=== PATIENT | male | born 1995 | race African-American/Black ===

== ENCOUNTER 2016-11-03 04:53 | Emergency (ER) | payer OTHER ==
[2016-11-03 05:12] VITALS: BMI 25.8
[2016-11-03] MEDS ORDERED: SODIUM CHLORIDE 1,000 ML IV STA (07:31)
[2016-11-03] MEDS ORDERED: ACETAMINOPHEN 650 MG/20.3 ML ORAL SOLUTION (CUPS) PO ONE (07:32)
--- NOTE | 2016-11-03 07:39 | PDOC ---
History of Present Illness - General Chief Complaint: Headache Stated Complaint: HEADACHE,WEAKNESS Time Seen by Provider: 11/03/16 07:19 History Source: Patient Exam Limitations: No Limitations - History of Present Illness Initial Comments: 11/03/16 07:33 20-year-old male presents to the emergency room complaints of fever since yesterday now accompanied with body aches and left frontal headache. Patient denies sore throat, cough, dizziness, nausea, abdominal pain, diarrhea, rash, or visual changes. Patient denies medical history, recent travel, recent illness , and the mother states is fully vaccinated. Timing/Duration: 24 hours Severity: moderate Associated Symptoms: reports: fever/chills, headaches, weakness Past History - Past Medical History Allergies/Adverse Reactions: Allergies Allergy/AdvReac Type Severity Reaction Status Date / Time No Known Allergies Allergy Verified 11/03/16 05:06 Home Medications: Ambulatory Orders NK [No Known Home Medication] 09/01/15 - Psycho/Social/Smoking Cessation Hx Suicidal Ideation: No Smoking History: Former smoker Have you smoked in the past 12 months: No Number of Cigarettes Smoked Daily: 0 Information on smoking cessation initiated: No Hx Alcohol Use: No Drug/Substance Use Hx: No Patient Lives Alone: No Lives with/in: parents Review of Systems - Review of Systems Able to Perform ROS?: Yes Constitutional: Yes: Chills, Fever, Weakness HEENTM: No: Symptoms Reported Respiratory: No: Symptoms reported Cardiac (ROS): No: Symptoms Reported ABD/GI: No: Symptoms Reported : No: Symptoms Reported Musculoskeletal: No: Symptoms Reported Integumentary: No: Symptoms Reported Neurological: Yes: Headache, Weakness Endocrine: No: Symptoms Reported Hematologic/Lymphatic: No: Symptoms Reported *Physical Exam - Vital Signs Last Vital Signs Temp Pulse Resp BP Pulse Ox 100.6 F H 86 14 126/58 100 11/03/16 05:06 11/03/16 05:06 11/03/16 05:06 11/03/16 05:06 11/03/16 05:06 - Physical Exam General Appearance: Yes: Nourished, Appropriately Dressed. No: Apparent Distress HEENT: positive: EOMI, NETTIE, TMs Normal, Pharynx Normal. negative: Pale Conjunctivae Neck: positive: Supple Respiratory/Chest: positive: Lungs Clear, Normal Breath Sounds. negative: Respiratory Distress, Accessory Muscle Use Cardiovascular: positive: Regular Rhythm, Regular Rate. negative: Murmur Gastrointestinal/Abdominal: positive: Soft. negative: Tenderness Integumentary: positive: Normal Color, Warm, Moist Neurologic: positive: Motor Strength 5/5 (ambulatory) ED Treatment Course - LABORATORY CBC & Chemistry Diagram: 11/03/16 07:44 11/03/16 07:44 Medical Decision Making - Medical Decision Making 11/03/16 07:30 Patient complaining of fever since yesterday now with headache, body aches and generalized weakness. Patient has a temperature of 100.6 upon arrival. Patient on exam had no acute findings. Will send labs including influenza swab. Patient also ordered for liquid Tylenol and IV fluids. 11/03/16 09:02 11/03/16 09:02 Laboratory Tests 11/03/16 11/03/16 07:44 07:44 WBC 8.4 Hgb 16.4 Hct 48.7 MCV 98.5 H Neutrophils % 86.8 H Lymphocytes % 6.9 L Sodium 140 Potassium 4.4 Chloride 102 Carbon Dioxide 25 Anion Gap 13 BUN 11 Creatinine 1.1 Random Glucose 94 Calcium 9.0 Total Bilirubin 0.8 AST 33 ALT 47 Alkaline Phosphatase 116 Total Protein 7.7 Albumin 4.4 Influenza swab negative. Patient will be revitalized and discharged home with supportive care. 11/03/16 09:04 Selected Entries 11/03/16 08:32 Temperature 98.1 F Pulse Rate [ 89 Apical] Respiratory 17 Rate Blood Pressure 115/68 [Right Arm] O2 Sat by Pulse 98 Oximetry (%) *DC/Admit/Observation/Transfer Diagnosis at time of Disposition: Viral illness - Discharge Dispostion Disposition: HOME Condition at time of disposition: Improved - Referrals Referrals: Luis Antonio Feliciano MD [Primary Care Provider] - - Patient Instructions Printed Discharge Instructions: DI for Viral Syndrome Additional Instructions: At this point there was no acute findings on lab work and I recommend that you take Motrin 600 mg for discomfort and fever. Follow-up with your primary care physician. otherwise return to ED if symptoms worsen
[2016-11-03] MEDS ORDERED: ACETAMINOPHEN 650 MG/20.3 ML ORAL SOLUTION (CUPS) ONE (07:40)
[2016-11-03 08:34] LABS: BASOPHIL 0.2 % (0-2.0); EOSINOPHIL 0.1 % (0-4.5); MCH 33.2 pg (25.7-33.7); MCHC 33.7 g/dl (32.0-35.9); MEAN CELL VOLUME 98.5 fl (80-96); MEAN PLT VOLUME 9.1 fl (7.5-11.1); NEUTROPHILS 86.8 % (42.8-82.8); RDW 13.4 % (11.9-15.9); WHITE BLOOD COUNT 8.4 K/mm3 (4.0-10.0)
[2016-11-03 08:35] LABS: ALBUMIN 4.4 g/dl (3.4-5.0); ANION GAP 13 (8-16); BILIRUBIN,TOTAL 0.8 mg/dL (0.2-1.0); CO2 25 mmol/L (21-32); COCKROFT - GAULT 116.83; CREATININE 1.1 mg/dL (0.7-1.3); GLUCOSE,RANDOM 94 mg/dL (74-106); SGOT/AST 33 U/L (15-37); SGPT/ALT 47 U/L (12-78); TOT PROT 7.7 g/dl (6.4-8.2)
[2016-11-03 08:36] LABS: ALK PHOS 116 U/L (45-117)
[2016-11-03 09:16] VITALS: BP 117/57; PULSE 74; TEMP 98.6
[2016-11-03 10:33] LABS: PLATELET COUNT 189 K/MM3 (134-434)
== END 2016-11-03 09:16 | disposition home or self-care (01) ==
LOC: JER 04:53
DX: B34.9 Viral infection, unspecified (principal)
CPT/HCPCS: 36415; 80053; 85025; 87804; 99283-25

== ENCOUNTER 2017-09-03 14:33 | Emergency (ER) | payer OTHER ==
[2017-09-03 14:51] VITALS: BP 140/79; PULSE 66; TEMP 97.9; BMI 23.7
[2017-09-03] MEDS ORDERED: KETOROLAC TROMETHAMINE 30 MG/1 ML VIAL IM ONE (15:39)
[2017-09-03] MEDS ORDERED: KETOROLAC TROMETHAMINE 30 MG/1 ML VIAL ONE (15:45)
[2017-09-03] MEDS ORDERED: IBUPROFEN 600 MG TABLET (FP) PO ONE ×2 (15:48→15:52)
--- NOTE | 2017-09-03 15:52 | PDOC ---
History of Present Illness - General Chief Complaint: Cold Symptoms Stated Complaint: BODYACHE Time Seen by Provider: 09/03/17 15:10 History Source: Patient Exam Limitations: No Limitations - History of Present Illness Initial Comments: 09/03/17 15:41 this is a 21-year-old male without significant past medical history of presents emergency Department with 3 days of headaches, body aches, runny nose, productive cough with white sputum, and intermittent lightheadedness. Patient denies any sick contacts. Patient denies fevers, chills, chest pain, shortness of breath, abdominal pain, nausea, vomiting, blurry vision. Past History - Past Medical History Allergies/Adverse Reactions: Allergies Allergy/AdvReac Type Severity Reaction Status Date / Time No Known Allergies Allergy Verified 09/03/17 14:41 Home Medications: Ambulatory Orders NK [No Known Home Medication] 09/01/15 COPD: No Other medical history: DENIES. - Suicide/Smoking/Psychosocial Hx Smoking History: Never smoked Have you smoked in the past 12 months: No Number of Cigarettes Smoked Daily: 0 Hx Alcohol Use: No Drug/Substance Use Hx: No Review of Systems - Review of Systems Able to Perform ROS?: Yes Is the patient limited [place] proficient: No Constitutional: Yes: See HPI HEENTM: Yes: See HPI Respiratory: Yes: See HPI Cardiac (ROS): No: Symptoms Reported ABD/GI: No: Symptoms Reported : No: Symptoms Reported Musculoskeletal: Yes: See HPI Integumentary: No: Symptoms Reported Neurological: Yes: See HPI Endocrine: No: Symptoms Reported Hematologic/Lymphatic: No: Symptoms Reported *Physical Exam - Vital Signs Last Vital Signs Temp Pulse Resp BP Pulse Ox 97.9 F 66 17 140/79 97 09/03/17 14:41 09/03/17 14:41 09/03/17 14:41 09/03/17 14:41 09/03/17 14:41 - Physical Exam General Appearance: Yes: Appropriately Dressed. No: Apparent Distress HEENT: positive: TMs Normal, Tonsillar Erythema, Other (Cobblestoning present in posterior oropharynx). negative: Pharyngeal Erythema, Tonsillar Exudate Neck: positive: Trachea midline, Lymphadenopathy (R), Lymphadenopathy (L). negative: Stridor Respiratory/Chest: positive: Lungs Clear, Normal Breath Sounds. negative: Respiratory Distress, Accessory Muscle Use Cardiovascular: positive: Regular Rhythm, Regular Rate. negative: Murmur Gastrointestinal/Abdominal: positive: Normal Bowel Sounds, Soft. negative: Tender Musculoskeletal: positive: Normal Inspection. negative: CVA Tenderness Extremity: positive: Normal Inspection Integumentary: positive: Normal Color, Dry, Warm Neurologic: positive: electrical logger II-XII NML intact, Fully Oriented, Alert, Normal Mood/ Affect, Normal Response, Motor Strength 5/5, Finger to Nose Medical Decision Making - Medical Decision Making 09/03/17 15:44 A/P: 21-year-old male without significant past medical history with 3 days of headache, body aches, rhinorrhea, productive cough with white sputum and intermittent lightheadedness. Oropharynx with tonsillar erythema and posterior cobblestoning present. TMs clear with appropriate light reflex. Nontender anterior cervical lymphadenopathy present. Lungs clear to auscultation bilaterally. RRR. No murmur, rub or gallop present. Abdomen soft nontender nondistended. Cranial nerves II through XII grossly intact. Finger-nose testing within normal limits. No nystagmus present. Upper respiratory infection versus streptococcal pharyngitis. I will obtain rapid strep testing and give the patient's Motrin 600 mg orally now. Reassess 09/03/17 16:35 Rapid strep testing positive for group A strep. I will treat the patient with Bicillin 1.2 million units IM. *DC/Admit/Observation/Transfer Diagnosis at time of Disposition: Strep pharyngitis - Discharge Dispostion Disposition: HOME Condition at time of disposition: Stable Admit: No - Referrals Referrals: Luis Antonio Feliciano MD [Primary Care Provider] - - Patient Instructions Printed Discharge Instructions: DI for Strep Throat Additional Instructions: Salt water gargles. Throw away your toothbrush and start using a new toothbrush in 3 days. No sharing of drinks, utensils or toothbrushes. Take Motrin as directed by river guide's instructions. Return to ED for worsening fevers, worsening sore throat, chest pain, shortness of breath or any other concerns. - Post Discharge Activity
[2017-09-03] MEDS ORDERED: PENICILLIN G BENZATHINE 1,200,000 UNIT/2 ML PFS IM ONE (16:38)
[2017-09-03] MEDS ORDERED: PENICILLIN G BENZATHINE 2,400,000 UNIT/4 ML PFS ONE (16:43)
== END 2017-09-03 17:09 | disposition home or self-care (01) ==
LOC: JERFT 14:33 → JER 14:33 → JERFT 17:09
DX: J02.0 Streptococcal pharyngitis (principal); B95.0 Streptococcus, group A, as the cause of diseases classified elsewhere
CPT/HCPCS: 87070; 87430; 96372; 99281-25

== ENCOUNTER 2018-05-06 07:47 | Emergency (ER) | payer OTHER ==
[2018-05-06 08:03] VITALS: BP 147/95; PULSE 62; TEMP 98.3; BMI 24.7
--- NOTE | 2018-05-06 08:07 | PDOC ---
History of Present Illness - General Chief Complaint: Toothache Stated Complaint: TOOTHACHE Time Seen by Provider: 05/06/18 08:04 History Source: Patient Exam Limitations: No Limitations - History of Present Illness Initial Comments: CHIEF COMPLAINT: 22 y/o afebrile male c/o toothache x 1 week. HISTORY OF PRESENT ILLNESS: The patient denies fever, difficulty eating. He does not have a dentist. He hasn't needed to take anything for the pain. Vital signs on arrival are within normal limits. REVIEW OF SYSTEMS: GENERAL/CONSTITUTIONAL: No fever. HEAD, EYES, EARS, NOSE AND THROAT: +toothache x 1 week. No change in vision. No ear pain or discharge. No sore throat. PHYSICAL EXAM: GENERAL: The patient is awake, alert, and fully oriented, in no acute distress. HEAD: Normal with no signs of trauma. No mastoid TTP b/l. ENT: Pupils equal, round and reactive to light, extraocular movements intact, sclera anicteric, conjunctiva clear. Cracked bottom right posterior molar that is not TTP. Gingivitis surrounding broken tooth. No trismus. No facial swelling. No lymphadenopathy. Past History - Past Medical History Allergies/Adverse Reactions: Allergies Allergy/AdvReac Type Severity Reaction Status Date / Time No Known Allergies Allergy Verified 05/06/18 07:59 Home Medications: Ambulatory Orders NK [No Known Home Medication] 09/01/15 COPD: No - Suicide/Smoking/Psychosocial Hx Smoking History: Never smoked Have you smoked in the past 12 months: No Number of Cigarettes Smoked Daily: 0 Hx Alcohol Use: No Drug/Substance Use Hx: No *Physical Exam - Vital Signs Last Vital Signs Temp Pulse Resp BP Pulse Ox 98.3 F 62 18 147/95 99 05/06/18 07:55 05/06/18 07:55 05/06/18 07:55 05/06/18 07:55 05/06/18 07:55 Medical Decision Making - Medical Decision Making A/P: 22 y/o afebrile male with right lower molar cracked and toothache. Will give PO motrin in the ER. Does not appear infected at this time. Will give referral to emergency dental clinic. The patient verbalizes understanding of all instructions, has no further questions and is awaiting discharge. *DC/Admit/Observation/Transfer Diagnosis at time of Disposition: Toothache, Gingivitis - Discharge Dispostion Disposition: HOME Condition at time of disposition: Good - Referrals Referrals: Luis Antonio Feliciano MD [Primary Care Provider] - - Patient Instructions Printed Discharge Instructions: DI for Dental Pain, DI for Impacted Tooth Additional Instructions: Discharge Instructions: -Take 600mg of over the counter Ibuprofen for pain every 6 hours with food if needed -Gargle with salt water after every meal -Please call the dental clinic at [phone] to make an appointment as soon as possible. - Post Discharge Activity
[2018-05-06] MEDS ORDERED: IBUPROFEN 600 MG TABLET (FP) PO ONE ×2 (08:17→08:18)
== END 2018-05-06 08:33 | disposition home or self-care (01) ==
LOC: JERFT 07:47 → JER 07:47 → JERFT 08:33
DX: K08.89 Other specified disorders of teeth and supporting structures (principal); K03.81 Cracked tooth; K05.10 Chronic gingivitis, plaque induced
CPT/HCPCS: 99281-25

== ENCOUNTER 2018-05-14 01:38 | Emergency (ER) | payer OTHER ==
--- NOTE | 2018-05-14 01:48 | PDOC ---
History of Present Illness - General Stated Complaint: EARLOBE PAIN Time Seen by Provider: 05/14/18 02:00 History Source: Patient, Family Exam Limitations: No Limitations - History of Present Illness Initial Comments: 05/14/18 01:58 This is a 22 YOM with unremarkable PMH who p/w his family c/o earlobe piercing skin tear. The patient and family state that his left ear has been pierced almost his entire life and he has been wearing heavy earrings, the piercing stretched out over years and years, and there was only a small strip of earlobe tissue left holding his earring up tonight when that strip of tissue tore as his rubbed his earlobe. He notes there is no pain and no bleeding. He denies any injuries tonight, and denies any other recent symptoms. Past History - Past Medical History Allergies/Adverse Reactions: Allergies Allergy/AdvReac Type Severity Reaction Status Date / Time No Known Allergies Allergy Verified 05/14/18 02:13 Home Medications: Ambulatory Orders NK [No Known Home Medication] 09/01/15 COPD: No - Suicide/Smoking/Psychosocial Hx Smoking History: Never smoked Have you smoked in the past 12 months: No Number of Cigarettes Smoked Daily: 0 Hx Alcohol Use: No Drug/Substance Use Hx: No Review of Systems - Review of Systems Able to Perform ROS?: Yes Comments:: GEN: no fever, chills, malaise, generalized weakness, or weight change HEENT: no ear pain, sore throat, vision change, or eye pain CV: no chest pain, palpitations, lightheadedness, syncope, or edema RESP: no cough, wheezing, or SOB GI: no abdominal pain, nausea, vomiting, diarrhea, constipation, or white/black/ bloody stool : no dysuria, hematuria, incontinence, retention, bleeding, or discharge MSK: no neck/back pain, muscle weakness/pain, or joint swelling/pain NEURO: no headache, seizure, vertigo, numbness, tingling, or focal weakness PSYCH: no substance use, no behavior change SKIN: no jaundice, no rash ROS otherwise negative except as noted in HPI *Physical Exam - Vital Signs Initial Vital Signs Temp Pulse Resp BP Pulse Ox 99.1 F 85 18 124/73 99 05/14/18 01:40 05/14/18 01:40 05/14/18 01:40 05/14/18 01:40 05/14/18 01:40 05/14/18 02:08 GENERAL: well-appearing, A/Ox4, no distress, answers questions appropriately, accompanied by family at bedside HEENT: right earlobe normal, left earlobe with chronic-appearing soft tissue stretching along earlobe piercing which now is bisecting the earlobe into two separate strips of tissue, no bleeding, no tenderness, skin appears slightly darkened and poorly perfused compared with contralateral earlobe, PERRLA, EOMI, moist mucous membranes NECK/BACK: no midline ttp, no spinal stepoff or deformity, no hematoma, full ROM , neck supple CARDIOVASCULAR: regular rate/rhythm, normal S1S2, no MGR, strong peripheral pulses, capillary refill <2 seconds, extremities wwp, no edema LUNGS/RESPIRATORY: no respiratory distress, CTAB GI/ABDOMEN: symmetric [id number], normoactive BS, soft, no ttp, no midline pulsatile masses : no CVA tenderness EXTREMITIES: no muscle atrophy, no acute deformity, no edema SKIN: left earlobe as noted in HEENT section, skin otherwise warm and dry, no pallor, no jaundice, no rash, no bruising, no skin breakdown, no cuts, no lesions NEUROLOGICAL: GCS 15, CN II-XII grossly intact, 5/5 strength proximally and distally, no facial droop Medical Decision Making - Medical Decision Making 05/14/18 02:12 Adult male patient with long-standing left earlobe piercing stretching p/w rupture of thin strip of remaining earlobe soft tissue. Initial Vital Signs Temp Pulse Resp BP Pulse Ox 99.1 F 85 18 124/73 99 05/14/18 01:40 05/14/18 01:40 05/14/18 01:40 05/14/18 01:40 05/14/18 01:40 Exam: As noted in Physical Exam section. Most likely this is simple mechanical stretching of earlobe soft tissue without infection. Very unlikely any emergency infection, decreased perfusion, or other more serious etiology. W/U ordered: None TX ordered: None Workup is not concerning for emergency-level pathology at this time. This patient is appropriate for discharge with close outpatient follow up. They are comfortable with this plan and will follow up with their primary care provider as scheduled today. Specific return precautions are discussed and they will come back to the ER if necessary. *DC/Admit/Observation/Transfer Diagnosis at time of Disposition: Torn earlobe Qualifiers: Encounter type: initial encounter Laterality: left Qualified Code(s): S01.312A - Laceration without foreign body of left ear, initial encounter - Discharge Dispostion Disposition: ELOPED Condition at time of disposition: Stable Decision to Admit order: No - Referrals Referrals: Luis Antonio Feliciano MD [Primary Care Provider] - - Patient Instructions Additional Instructions: You were seen in the emergency room for a torn earlobe. We do believe you are having a medical emergency requiring treatment or admission at this time. Please follow up with your PCP doctor as scheduled this week. Return to the ER for any new or worsening emergency concerns, especially ear redness, pain, or signs of infection. - Post Discharge Activity
--- NOTE | 2018-05-14 01:54 | PDOC ---
Attending Attestation - Resident Resident Name: Heather Chiang - HPI HPI: 05/14/18 02:24 Pt presents to the ED complaining of tear to earlobe after wearing heavy earring. Patient has a lifelong history of wearing heavy earrings that have stretched his earlobe. Today, he noticed that the earring had torn through the small amount of skin remaining in his earlobe and that there was some very mild bleeding. Denies fever, pus or redness to the affected earlobe. - Physicial Exam PE: 05/14/18 02:28 Agree with resident exam. Patient is well appearing and is ambulatory with a steady gait. + healed division in L earlobe with very small ( less than 1 mm) area of open skin. - Medical Decision Making 05/14/18 02:30 Pt presents to the ED complaining of very small open wound to the left ear lobe. I explained to the patient and his mother that the wound was not infected and could not be sutured. Patient also reports that he has intermittent insomina for "a long time". He has not discussed this with his PMD, and this is not bothering him today. I instructed the patient to follow up with his PMD tomorrow and to discuss his insomnia with the PMD. At this point, the patient's mother became extremely angry. She stated that " I called before I came in, and I wouldn't have come in if there wasn't anything you could do for him". She stated that she had been to the ED twice with her son and was told that there was nothing that could be done on both occasions. She got up with the patient and left before discharge instructions were given. The mother than returned to the ED to tell me that the patient was "in pain". Mother and patient did not mention pain to me on my initial evaluation. I offered to re-evaluate the patient, but the mother refused and again walked out of the ED.
[2018-05-14 02:15] VITALS: BP 124/73; PULSE 85; TEMP 99.1; BMI 25.1
== END 2018-05-14 02:25 | disposition left against medical advice (07) ==
LOC: JER 01:38
DX: S01.312A Laceration without foreign body of left ear, initial encounter (principal); W26.8XXA Contact with other sharp object(s), not elsewhere classified, initial encounter; W45.8XXA Other foreign body or object entering through skin, initial encounter; Y93.89 Activity, other specified; Y92.038 Other place in apartment as the place of occurrence of the external cause; Y99.8 Other external cause status
CPT/HCPCS: 99282-25

== ENCOUNTER 2020-08-23 13:30 | Emergency (ER) | payer OTHER ==
[2020-08-23 13:37] VITALS: BMI 30.7
[2020-08-23] MEDS ORDERED: FAMOTIDINE 20 MG TABLET PO ONE (14:14)
[2020-08-23] MEDS ORDERED: MAG HYDROX/AL HYDROX/SIMETH 30 ML UNIT-DOSE CUP PO ONE (14:14)
[2020-08-23] MEDS ORDERED: FAMOTIDINE 20 MG TABLET ONE (15:00)
[2020-08-23] MEDS ORDERED: MAG HYDROX/AL HYDROX/SIMETH 30 ML UNIT-DOSE CUP ONE (15:00)
[2020-08-23 15:28] LABS: BASO % 0.3 % (0-2.0); HEMATOCRIT 49.8 % (35.4-49); HEMOGLOBIN 17.1 GM/dL (11.7-16.9); LYMPH % 27.3 % (8-40); MCH 33.9 pg (25.7-33.7); MCHC 34.3 g/dl (32.0-35.9); MEAN CELL VOLUME 98.8 fl (80-96); MEAN PLT VOLUME 8.8 fl (7.5-11.1); MONO % 8.8 % (3.8-10.2); NEUT % 62.6 % (42.8-82.8); PLATELET COUNT 206 K/MM3 (134-434); RBC 5.04 M/mm3 (4.00-5.60); RDW 13.8 % (11.9-15.9); WHITE BLOOD COUNT 6.9 K/mm3 (4.0-10.0)
[2020-08-23 15:50] LABS: POTASSIUM 4.6 mmol/L (3.5-5.1)
[2020-08-23 15:52] LABS: ALBUMIN 4.3 g/dl (3.4-5.0); CALCIUM 9.6 mg/dL (8.5-10.1)
[2020-08-23 15:53] LABS: BLOOD UREA NITROGEN 10.6 mg/dL (7-18)
[2020-08-23 15:56] LABS: CREATININE 1.1 mg/dL (0.55-1.3)
[2020-08-23 15:57] LABS: BILIRUBIN,TOTAL 0.4 mg/dL (0.2-1); TOT PROT 7.7 g/dl (6.4-8.2)
[2020-08-23 17:25] VITALS: BP 126/80; PULSE 76; TEMP 98.2
== END 2020-08-23 17:23 | disposition home or self-care (01) ==
LOC: JER 13:30
DX: K21.9 Gastro-esophageal reflux disease without esophagitis (principal)
CPT/HCPCS: 36415; 80053; 83690; 85025; 99283-25

== ENCOUNTER 2022-05-23 13:11 | Emergency (ER) | payer OTHER ==
[2022-05-23 13:29] VITALS: BMI 30.7
[2022-05-23 17:07] LABS: BASO % 0.8 % (0-2.0); EOS % 1.8 % (0-4.5); HEMATOCRIT 50.3 % (35.4-49); HEMOGLOBIN 17.1 GM/dL (11.7-16.9); LYMPH % 29.1 % (8-40); MEAN PLT VOLUME 8.7 fl (7.5-11.1); MONO % 10.7 % (3.8-10.2); NEUT % 57.6 % (42.8-82.8); PLATELET COUNT 255 10^3/uL (134-434); RBC 5.19 M/mm3 (4.00-5.60); RDW 13.4 % (11.9-15.9); WHITE BLOOD COUNT 9.5 K/mm3 (4.0-10.0)
[2022-05-23 17:20] LABS: INR 1.09 (0.83-1.09); PROTHROMBIN TIME (PATIENT) 12.5 SEC (9.7-13.0)
[2022-05-23 17:23] LABS: ACTIVATED PTT 31.8 SECONDS (25.2-36.5)
[2022-05-23 17:26] LABS: ALBUMIN 4.1 g/dl (3.4-5.0); CALCIUM 9.2 mg/dL (8.5-10.1)
[2022-05-23 17:27] LABS: BLOOD UREA NITROGEN 8.5 mg/dL (7-18)
[2022-05-23 17:29] LABS: CREATININE 1.1 mg/dL (0.55-1.3)
[2022-05-23 17:31] LABS: BILIRUBIN,TOTAL 0.2 mg/dL (0.2-1); TOT PROT 7.4 g/dl (6.4-8.2)
[2022-05-23 19:41] LABS: PH,URINE 5.5 (5.0-8.0); URINE APPEARANCE CLEAR; URINE BILIRUBIN NEGATIVE (NEGATIVE); URINE COLOR YELLOW; URINE GLUCOSE (UA) NEGATIVE (NEGATIVE); URINE KETONE NEGATIVE (NEGATIVE); URINE LEUK ESTERASE NEGATIVE (NEGATIVE); URINE NITRITE NEGATIVE (NEGATIVE); URINE PROTEIN NEGATIVE (NEGATIVE); URINE UROBILINOGEN 0.2 mg/dL (0.2-1.0)
[2022-05-23 21:25] VITALS: BP 130/71; PULSE 72; RESP 20; TEMP 97.9
== END 2022-05-23 23:07 | disposition home or self-care (01) ==
LOC: JER 13:11
DX: R10.31 Right lower quadrant pain (principal)
CPT/HCPCS: 36415; 74177-TC; 80053; 81003; 83690; 85025; 85610; 85730; 86850; 86900; 86901; 87086; 99285-25

== ENCOUNTER 2023-09-25 10:07 | Emergency (ER) | payer OTHER ==
[2023-09-25 10:57] VITALS: BP 139/78; PULSE 71; RESP 16; TEMP 97.5; BMI 37.5
[2023-09-25] MEDS ORDERED: IBUPROFEN 600 MG TABLET (FP) PO ONE (11:28)
[2023-09-25] MEDS: IBUPROFEN 600 MG TABLET (FP) PO ONE (11:29)
== END 2023-09-25 12:29 | disposition home or self-care (01) ==
LOC: JER 10:07
DX: J02.9 Acute pharyngitis, unspecified (principal); J06.9 Acute upper respiratory infection, unspecified; M79.10 Myalgia, unspecified site; Z20.822 Contact with and (suspected) exposure to COVID-19
CPT/HCPCS: 0241U-QW; 87651; 99283-25

== ENCOUNTER 2024-02-08 05:23 | Emergency (ER) | payer OTHER ==
[2024-02-08 05:29] VITALS: BP 147/95; PULSE 72; RESP 20; TEMP 98.3; BMI 30.7
[2024-02-08] MEDS ORDERED: ACETAMINOPHEN 325 MG TABLET (FP) ONE (06:03)
[2024-02-08] MEDS: ACETAMINOPHEN 500 MG TABLET (FP) PO ONE (06:14)
== END 2024-02-08 06:34 | disposition home or self-care (01) ==
LOC: JER 05:23
DX: M25.562 Pain in left knee (principal); V89.2XXA Person injured in unspecified motor-vehicle accident, traffic, initial encounter; Y92.410 Unspecified street and highway as the place of occurrence of the external cause
CPT/HCPCS: 99283-25